=== PATIENT | female | born 1980 | race Caucasian/White ===

== ENCOUNTER 2016-10-14 17:33 | Emergency (ER) | payer OTHER ==
[~2016-10-14] VITALS: Ht 167.6 cm; Wt 68.4 kg
[~2016-10-14 17:33] MED LIST: EFFSR75 PO; HYDR-5688 PO; ONDA4TAB9 PO; OXYC-643 PO; [UNRECOGNIZED DRUG - OTHER] PO
[2016-10-14 17:40] VITALS: BP 122/83; PULSE 89; TEMP 37.1; O2SAT 98; Ht 167.6 cm; Wt 68.4 kg
[2016-10-14] MEDS ORDERED: KETOROLAC TROMETHAMINE 60 MG/2 ML VIAL IM STA (18:09)
[2016-10-14] MEDS ORDERED: CYCL10TA6 PO (18:11)
[2016-10-14] MEDS ORDERED: PHEN37.5 PO (18:18)
[2016-10-14] MEDS ORDERED: PRM9 PO (18:18)
--- NOTE | 2016-10-14 18:33 | EMERGENCY ROOM VISIT NOTE ---
History First contact with patient: 17:56 Chief Complaint: BACK INJURY Stated Complaint: INJURED MIDDLE OF BACK History of Present Illness The patient is a 36 year old female who presents to the Emergency Room with complaints of persistent middle back pain after using the butterfly machine yesterday after lunch time. The patient denies any twisting injury of the back. The patient reports that she initially had a sudden tearing/burning sensation in the back that improves throughout the remainder of the afternoon. However, the pain started to worsen again last night and this morning. She denies any pain radiating up or down the back. She does reports the pain seems to be radiating around to the right posterior ribs. She denies any shortness of breath or significant worsening pain with deep breathing. She has not taken any medications for the pain, and currently rates her discomfort a 7 out of 10. Review of Systems 10 system review was performed and was negative except for pertinent positives and negatives as indicated in history of present illness Past Medical/Surgical History Medical Problems: (1) Anxiety State Nos (2) Bronchitis Nos (3) Endometriosis (4) Recurrent kidney stones Surgical Problems: (1) H/O: hysterectomy (2) Hx of cystoscopy Family History Cancer Heart disease Social History Smoking Status: Current Every Day Smoker Alcohol Use: none Drug Use: none Marital Status: Housing Status: lives alone Occupation Status: unemployed Current/Historical Medications Scheduled Cyclobenzaprine Hcl (Flexeril), 10 MG PO TID Estrogens, Conjugated (Premarin), 0.9 MG PO DAILY Phentermine Hcl (Phentermine Hcl), 37.5 MG PO DAILY Allergies Coded Allergies: No Known Allergies (Unverified , 10/14/16) Physical Exam Vital Signs Date Time Temp Pulse Resp B/P Pulse Ox O2 Delivery O2 Flow Rate FiO2 10/14/16 17:40 37.1 89 18 122/83 98 Room Air Pain Rating (0-10): 4.0 Physical Exam CONSTITUTIONAL: Healthy and well nourished. Alert and oriented X 3 with positive affect. Patient appears in mild discomfort from pain. HEENT: Normocephalic, atraumatic. Pupils equal, round and reactive. NECK: Full active range of motion without discomfort. RESPIRATORY: Clear to auscultation bilaterally with no wheezing, crackles, rhonchi or stridor. Patient has no significant worsening pain with deep breathing. CARDIOVASCULAR: Regular rate and rhythm with no murmurs, rubs or gallops. GASTROINTESTINAL: Bowel sounds present in all quadrants. Soft and nontender to palpation. MUSCULOSKELETAL: Examination shows generalized tenderness to palpation of the paraspinous muscles of the lower thoracic spine. She has no focal step-offs or tenderness through the central thoracic spine. Movement with flexion, extension and rotation worsens her discomfort. INTEGUMENTARY: No rash or other significant dermatologic conditions noted. NEUROLOGIC: No focal neurologic deficits noted. Medical Decision & Procedures Medications Administered Medications (Trade) Dose Ordered Sig/Edward Route Start Time Stop Time Status Last Admin Dose Admin Ketorolac Tromethamine (Toradol Inj) 60 mg NOW STAT IM 10/14/16 18:09 10/14/16 18:10 DC 10/14/16 18:18 60 MG ED Course Patient history and physical exam were performed. Nurse's notes were reviewed. Vital signs were reviewed and were normal. Review of medical records shows that the patient is currently on a no narcotic prescription plan under her previous name of Cinthya Haynesjennifergui. The patient was advised that her mechanism of injury is not likely to cause a vertebral fracture. She also denies any significant rotational injury, therefore I do not suspect discogenic injury. The patient was administered Toradol 60 mg IM, and received a prescription for Flexeril. She was encouraged to alternate ibuprofen and Tylenol for baseline pain relief. She was encouraged to intermittently apply ice to the back. The patient reports that she did contact her PCPs office and could not get an appointment until . The patient was instructed to follow-up with her PCP as needed for any persistent pain. The patient was happy with plan of care , voiced understanding of all discharge instructions, and rated her pain a 6 out of 10 at the time of discharge. Medical Decision See previous section Impression Primary Impression: Thoracic myofascial strain Departure Information Dispostion Home / Self-Care Prescriptions Cyclobenzaprine Hcl (FLEXERIL) 10 Mg Tab 10 MG PO TID for spasm, #15 TAB Prov: Toan Arroyo PA 10/14/16 Forms HOME CARE DOCUMENTATION FORM, IMPORTANT VISIT INFORMATION Patient Instructions My [facility] Additional Instructions Intermittently apply ice to area of discomfort. Ibuprofen 800 mg and/or Tylenol 1000 mg every 8 hours. You may also alternate these medications for more effective pain relief: Ibuprofen --4 HRS--> Tylenol --4 HRS--> ibuprofen --4 HRS--> Tylenol .... Flexeril as needed for additional pain relief/spasm. Do not drink alcohol or drive while taking Flexeril. Follow-up with your family doctor for further reevaluation and management if symptoms are not improving. Problem Qualifiers Primary Impression: Thoracic myofascial strain Encounter type: initial encounter Qualified Codes: S29.019A - Strain of muscle and tendon of unspecified wall of thorax, initial encounter
== END 2016-10-14 18:22 | disposition home or self-care (01) ==
LOC: C.EDB 17:35 → C.EDD 18:22
DX: S29.019A Strain of muscle and tendon of unspecified wall of thorax, initial encounter (principal); Y93.B1 Activity, exercise machines primarily for muscle strengthening; Y92.89 Other specified places as the place of occurrence of the external cause; F17.210 Nicotine dependence, cigarettes, uncomplicated

== ENCOUNTER 2017-05-06 16:24 | Emergency (ER) | payer OTHER ==
[~2017-05-06] VITALS: Ht 167.6 cm; Wt 70.0 kg
[~2017-05-06 16:24] MED LIST changes: -EFFSR75 PO; -HYDR-5688 PO; -ONDA4TAB9 PO; -OXYC-643 PO; +PHEN37.5 PO; +PRM9 PO; -[UNRECOGNIZED DRUG - OTHER] PO
[2017-05-06 16:28] VITALS: TEMP 36.7; Ht 167.6 cm; Wt 70.0 kg
[2017-05-06] MEDS ORDERED: FENTANYL CITRATE INJ 50 MCG/1 ML 2 ML VIAL IV STA (17:41)
[2017-05-06] MEDS ORDERED: KETOROLAC TROMETHAMINE 30 MG/ML VIAL IV STA (17:41)
[2017-05-06] MEDS ORDERED: ONDANSETRON INJ 2 MG/ML 2 ML VIAL IV STA (17:41)
[2017-05-06] MEDS ORDERED: SODIUM CHLORIDE 0.9% 1000ML 1,000 ML IV STA (17:41)
[2017-05-06] MEDS ORDERED: OPTIRAY 320 IV PRN (18:00)
[2017-05-06 18:13] LABS: BASO % 0.9 %; BASO ABS # 0.08 K/uL (0-0.2); COMPLETE YES; EOS % 1.1 %; HEMATOCRIT 42.1 % (37-47); IG% 0.2 %; LYMPH % 24.1 %; LYMPH ABS # 2.04 K/uL (1.2-3.4); MEAN CELL VOLUME 86.6 fL (80-100); MEAN CORPUSCULAR HGB CONC 34.7 g/dl (32-36); MEAN PLATELET VOLUME 8.9 fL (7.4-10.4); MONO % 7.7 %; PLATELET COUNT 309 K/uL (130-400); RED BLOOD COUNT 4.86 M/uL (4.2-5.4); WHITE BLOOD COUNT 8.48 K/uL (4.8-10.8)
[2017-05-06 18:34] LABS: ALT/SGPT 43 U/L (12-78); AST/SGOT 30 U/L (15-37); BLOOD UREA NITROGEN 20 mg/dl (7-18); BUN/CREATININE RATIO 27.4 (10-20); CALCIUM 8.9 mg/dl (8.5-10.1); CARBON DIOXIDE 27 mmol/L (21-32); CHLORIDE 107 mmol/L (98-107); CREATININE 0.72 mg/dl (0.60-1.20); GLUCOSE 79 mg/dl (70-99); POTASSIUM 3.6 mmol/L (3.5-5.1); SODIUM 140 mmol/L (136-145)
[2017-05-06 18:37] LABS: ALKALINE PHOSPHATASE 71 U/L (45-117)
[2017-05-06 18:43] LABS: URINE APPEARANCE CLOUDY (CLEAR); URINE COLOR DK YELLOW; URINE EPITHELIAL CELL AUTO >30 /lpf (0-5); URINE NITRITE NEG (NEG); URINE SPECIFIC GRAVITY 1.037 (1.000-1.030); UROBILINOGEN NEG (NEG); ZZUR CULT IF INDIC CLEAN CATCH NO
[2017-05-06 18:50] LABS: MANUAL MICROSCOPIC REQUIRED? NO; REVIEW REQ? NO; URINE BILIRUBIN NEG (NEG)
--- NOTE | 2017-05-06 19:42 | DIAGNOSTIC IMAGING REPORT ---
CT ABD/PELVIS IV CONTRAST ONLY CLINICAL HISTORY: L flank pain h/o renal stones COMPARISON STUDY: 03/20/2014 TECHNIQUE: Following the IV administration of 121 mL of Optiray-320, CT scan of the abdomen and pelvis was performed from the lung bases to the proximal femurs. Images are reviewed in the axial, sagittal, and coronal planes. IV contrast was administered without complication. A dose lowering technique was utilized adhering to the principles of ALARA. CT DOSE: 315.26 mGy.cm FINDINGS: Lower chest: There are minimal dependent atelectatic changes. Liver: The contrast-enhanced liver is normal in size, contour, and attenuation. There is no intrahepatic biliary ductal dilatation. The hepatic veins and portal veins are patent. Gallbladder: Unremarkable. Spleen: Normal in size and attenuation. Pancreas: Unremarkable. Adrenal glands: Unremarkable. Kidneys: There is symmetric renal cortical enhancement. The kidneys are normal in size without hydronephrosis. There is a punctate nonobstructing left renal calculus. Bowel: There are no transition zones indicate bowel obstruction. There is no evidence of acute diverticulitis. There is no evidence of acute appendicitis. Peritoneum: There is no intraperitoneal free air or abdominal ascites. Vasculature: The abdominal aorta is normal in course and caliber. Adenopathy: None. Pelvic viscera: The bladder, and pelvic viscera are unremarkable. Skeletal structures: No destructive osseous lesions are seen. IMPRESSION: 1. Punctate nonobstructing left renal calculus 2. No evidence of bowel obstruction. No evidence of free air 3. No acute inflammatory changes. Electronically signed by: Riaz Mcginnis M.D. 05/06/2017 7:41 PM Dictated Date/Time: 05/06/2017 7:29 PM
[2017-05-06] MEDS ORDERED: CIPR-255 PO (20:40)
[2017-05-06] MEDS ORDERED: TAMS0.4C38 PO (20:40)
[2017-05-06] MEDS ORDERED: ONDA4TAB10 SL (20:40)
[2017-05-06] MEDS ORDERED: IBUP-1451 PO (20:40)
--- NOTE | 2017-05-06 20:41 | EMERGENCY ROOM VISIT NOTE ---
History Report prepared by Bridgette: Heraclio Manzo Under the Supervision of: Dr. Satnam Rocha M.D. First contact with patient: 17:37 Chief Complaint: HEMATURIA Stated Complaint: PASSED TWO KIDNEY STONES, PAIN, BLOOD Nursing Triage Summary: Kidney stone history, left flank pain. Passed 2 stones today. Has been vomiting. History of Present Illness The patient is a 36 year old female who presents to the Emergency Room with complaints of persistent hematuria beginning yesterday. She states that she has passed two kidney stones since last night. She has a history of frequent kidney stones and states that these kidney stones appear larger than normal. The patient also complains of nausea, vomiting, and left flank pain. She denies any fevers, chills, diarrhea, or cough. She rates her current flank pain as a 6/10. Source of History: patient Onset: Yesterday Quality: other (hematuria) Timing: other (persistent) Associated Symptoms: + nausea, + vomiting, No fevers, No chills, No cough, No diarrhea Note: Additional symptoms: left flank pain. Review of Systems See HPI for pertinent positives and negatives. A total of ten systems were reviewed and were otherwise negative. Past Medical & Surgical Medical Problems: (1) Anxiety State Nos (2) Bronchitis Nos (3) Endometriosis (4) Recurrent kidney stones Surgical Problems: (1) H/O: hysterectomy (2) Hx of cystoscopy Family History Cancer Heart disease Social History Smoking Status: Current Every Day Smoker Alcohol Use: none Drug Use: none Marital Status: Housing Status: lives alone Occupation Status: unemployed Current/Historical Medications Scheduled Ciprofloxacin Hcl (Cipro), 500 MG PO BID Estrogens, Conjugated (Premarin), 0.9 MG PO DAILY Ondasetron Odt (Zofran Odt), 4 MG SL Q6H Phentermine Hcl (Phentermine Hcl), 37.5 MG PO DAILY Tamsulosin Hcl (Flomax), 0.4 MG PO DAILY Scheduled PRN Ibuprofen Tab (Motrin), 800 MG PO Q8H PRN for Pain Allergies Coded Allergies: No Known Allergies (Unverified , 05/06/17) Physical Exam Vital Signs Date Time Temp Pulse Resp B/P (MAP) Pulse Ox O2 Delivery O2 Flow Rate FiO2 05/06/17 21:00 79 16 122/76 97 05/06/17 19:55 72 13 05/06/17 19:45 71 11 05/06/17 19:45 80 05/06/17 18:14 89 18 120/84 94 05/06/17 16:28 36.7 102 17 115/79 95 Room Air Physical Exam GENERAL: Awake, alert, in no distress HENT: Normocephalic, atraumatic. Oropharynx unremarkable. Dry mucous membranes. EYES: Normal conjunctiva. Sclera non-icteric. NECK: Supple. No nuchal rigidity. FROM. No JVD. RESPIRATORY: Clear to auscultation. CARDIAC: Regular rate, normal rhythm. Extremities warm and well perfused. Pulses equal. ABDOMEN: Soft, non-distended. No rebound or guarding. No masses. Mild left CVA tenderness and left flank tenderness. No peritoneal signs. RECTAL: Deferred. MUSCULOSKELETAL: Chest examination reveals no tenderness. The back is symmetrical on inspection without obvious abnormality. There is no CVA tenderness to palpation. No joint edema. LOWER EXTREMITIES: Calves are equal size bilaterally and non-tender. No edema. No discoloration. NEURO: Normal sensorium. No sensory or motor deficits noted. SKIN: No rash or jaundice noted. Medical Decision & Procedures ER Provider Diagnostic Interpretation: CT: Radiology results as stated below per my review and radiologist interpretation CT ABD/PELVIS IV CONTRAST ONLY FINDINGS: Lower chest: There are minimal dependent atelectatic changes. Liver: The contrast-enhanced liver is normal in size, contour, and attenuation. There is no intrahepatic biliary ductal dilatation. The hepatic veins and portal veins are patent. Gallbladder: Unremarkable. Spleen: Normal in size and attenuation. Pancreas: Unremarkable. Adrenal glands: Unremarkable. Kidneys: There is symmetric renal cortical enhancement. The kidneys are normal in size without hydronephrosis. There is a punctate nonobstructing left renal calculus. Bowel: There are no transition zones indicate bowel obstruction. There is no evidence of acute diverticulitis. There is no evidence of acute appendicitis. Peritoneum: There is no intraperitoneal free air or abdominal ascites. Vasculature: The abdominal aorta is normal in course and caliber. Adenopathy: None. Pelvic viscera: The bladder, and pelvic viscera are unremarkable. Skeletal structures: No destructive osseous lesions are seen. IMPRESSION: 1. Punctate nonobstructing left renal calculus 2. No evidence of bowel obstruction. No evidence of free air 3. No acute inflammatory changes. Electronically signed by: Riaz Mcginnis M.D. 05/06/2017 7:41 PM Laboratory Results 05/06/17 18:00 Red Blood Count 4.86, Mean Corpuscular Volume 86.6, Mean Corpuscular Hemoglobin 30.0, Mean Corpuscular Hemoglobin Concent 34.7, Mean Platelet Volume 8.9, Neutrophils (%) (Auto) 66.0, Lymphocytes (%) (Auto) 24.1, Monocytes (%) (Auto) 7.7, Eosinophils (%) (Auto) 1.1, Basophils (%) (Auto) 0.9, Neutrophils # (Auto) 5.60, Lymphocytes # (Auto) 2.04, Monocytes # (Auto) 0.65, Eosinophils # (Auto) 0.09, Basophils # (Auto) 0.08 05/06/17 18:00 Test 05/06/17 18:00 White Blood Count 8.48 K/uL (4.8-10.8) Red Blood Count 4.86 M/uL (4.2-5.4) Hemoglobin 14.6 g/dL (12.0-16.0) Hematocrit 42.1 % (37-47) Mean Corpuscular Volume 86.6 fL (80-100) Mean Corpuscular Hemoglobin 30.0 pg (25-34) Mean Corpuscular Hemoglobin Concent 34.7 g/dl (32-36) Platelet Count 309 K/uL (130-400) Mean Platelet Volume 8.9 fL (7.4-10.4) Neutrophils (%) (Auto) 66.0 % Lymphocytes (%) (Auto) 24.1 % Monocytes (%) (Auto) 7.7 % Eosinophils (%) (Auto) 1.1 % Basophils (%) (Auto) 0.9 % Neutrophils # (Auto) 5.60 K/uL (1.4-6.5) Lymphocytes # (Auto) 2.04 K/uL (1.2-3.4) Monocytes # (Auto) 0.65 K/uL (0.11-0.59) Eosinophils # (Auto) 0.09 K/uL (0-0.5) Basophils # (Auto) 0.08 K/uL (0-0.2) RDW Standard Deviation 43.1 fL (36.4-46.3) RDW Coefficient of Variation 13.5 % (11.5-14.5) Immature Granulocyte % (Auto) 0.2 % Immature Granulocyte # (Auto) 0.02 K/uL (0.00-0.02) Urine Color DK YELLOW Urine Appearance CLOUDY (CLEAR) Urine pH 5.0 (4.5-7.5) Urine Specific [place] 1.037 (1.000-1.030) Urine Protein TRACE (NEG) Urine Glucose (UA) NEG (NEG) Urine Ketones 1+ (NEG) Urine Occult Blood 3+ (NEG) Urine Nitrite NEG (NEG) Urine Bilirubin NEG (NEG) Urine Urobilinogen NEG (NEG) Urine Leukocyte Esterase TRACE (NEG) Urine WBC (Auto) 1-5 /hpf (0-5) Urine RBC (Auto) 10-30 /hpf (0-4) Urine Hyaline Casts (Auto) 5-10 /lpf (0-5) Urine Epithelial Cells (Auto) >30 /lpf (0-5) Urine Bacteria (Auto) NEG (NEG) Urine Test NEG (NEG) Anion Gap 6.0 mmol/L (3-11) Est Creatinine Clear Calc Drug Dose 100.1 ml/min Estimated GFR () 124.0 Estimated GFR (Non- 107.0 BUN/Creatinine Ratio 27.4 (10-20) Calcium Level 8.9 mg/dl (8.5-10.1) Total Bilirubin 0.3 mg/dl (0.2-1) Direct Bilirubin < 0.1 mg/dl (0-0.2) Aspartate Amino Transf (AST/SGOT) 30 U/L (15-37) Alanine Aminotransferase (ALT/SGPT) 43 U/L (12-78) Alkaline Phosphatase 71 U/L (45-117) Total Protein 8.1 gm/dl (6.4-8.2) Albumin 4.2 gm/dl (3.4-5.0) Lipase 89 U/L (73-393) Laboratory results reviewed by me Medications Administered Medications (Trade) Dose Ordered Sig/Edward Route Start Time Stop Time Status Last Admin Dose Admin Sodium Chloride 1,000 ml @ 999 mls/hr Q1H1M STAT IV 05/06/17 17:41 05/06/17 18:41 DC 05/06/17 18:10 999 MLS/HR Ondansetron HCl (Zofran Inj) 4 mg NOW STAT IV 10/10/17 17:41 05/06/17 17:46 DC 05/06/17 18:11 4 MG Ketorolac Tromethamine (Toradol Inj) 30 mg NOW STAT IV 05/06/17 17:41 05/06/17 17:46 DC 05/06/17 18:10 30 MG Fentanyl Citrate (Fentanyl Inj) 100 mcg NOW STAT IV 05/06/17 17:41 05/06/17 17:46 DC 05/06/17 18:10 100 MCG ED Course 1738: The patient was evaluated in room C7. A complete history and physical exam was performed. 1740: Ordered Fentanyl Inj 100 mcg IV, Toradol Inj 30 mg IV, Zofran Inj 4 mg IV , Sodium Chloride 1000 ml @ 999 mls/hr IV. 2024: I reevaluated the patient. Discussed results and discharge instructions: she verbalized understanding and agreement. The patient is ready for discharge. Medical Decision I reviewed the patient's past medical history, medications, and the nursing notes as described above. The patient's presentation and history were concerning for kidney stone, UTI, pyelonephritis, gastritis, gastroenteritis, diverticulitis, STD and PID. The patient is a 36 y/o woman with pmhx of renal stones who presents to the ED with left flank pain and hematuria per HPI. On arrival the patient is uncomfortable but in NAD. AFVSS. WBC and CR wnl. UA with trace LE and 1-[address] with punctuate left ureteral stone without hydro. Sx improved after IVF/ meds. Given ?infection in UA will treat with Cipro. Findings and plan for follow -up d/w patient. Patient agreeable and d/c'd per discharge instructions. Medication Reconcilliation Current Medication List: was personally reviewed by me Blood Pressure Screening Patient's blood pressure: Normal blood pressure Blood pressure disposition: Did not require urgent referral Impression Primary Impression: Ureterolithiasis Additional Impression: UTI (urinary tract infection) Scribe Attestation The scribe's documentation has been prepared under my direction and personally reviewed by me in its entirety. I confirm that the note above accurately reflects all work, treatment, procedures, and medical decision making performed by me. Departure Information Dispostion Home / Self-Care Prescriptions Ibuprofen Tab (MOTRIN) 800 Mg Tab 800 MG PO Q8H Y for Pain for 14 Days, #42 TAB Prov: Satnam Rocha M.D. 05/06/17 Tamsulosin Hcl (FLOMAX) 0.4 Mg Cap 0.4 MG PO DAILY, #7 CAP Prov: Satnam Rocha M.D. 05/06/17 Ondasetron Odt (ZOFRAN ODT) 4 Mg Tab 4 MG SL Q6H for Nausea, #6 TAB Prov: Satnam Rocha M.D. 05/06/17 Ciprofloxacin Hcl (CIPRO) 500 Mg Tab 500 MG PO BID for 7 Days, #14 TAB Prov: Satnam Rocha M.D. 05/06/17 Referrals Esther Wilson D.OBritney (PCP) Patient Instructions ED UTI Cystitis Female, Kidney Stones, My [facility] Additional Instructions Please follow up with your primary care physician in the next 1-3 days for re- evaluation. You have a punctate kidney stone as well as a urinary tract infection. Otherwise, your exam, lab results, and CT scan did not show signs of an emergent condition at this time. Ibuprofen for pain as directed. Oxycodone for breakthrough pain as needed. Zofran as needed for nausea. Flomax to help with stone passage. Ciprofloxacin antibiotic for infection as prescribed. Return to the emergency department for worsening symptoms as described in the accompanying instructions. Problem Qualifiers
[2017-05-06] MEDS ORDERED: OXYCODONE IR HOME PACK PO ONE (20:45)
[2017-05-06 21:00] VITALS: BP 122/76; PULSE 79; O2SAT 97
== END 2017-05-06 21:00 | disposition home or self-care (01) ==
LOC: C.EDB 16:25 → C.EDC 21:00
DX: N20.1 Calculus of ureter (principal); N39.0 Urinary tract infection, site not specified; F41.9 Anxiety disorder, unspecified; Z82.49 Family history of ischemic heart disease and other diseases of the circulatory system; F17.200 Nicotine dependence, unspecified, uncomplicated